=== PATIENT | female | born 1935 | race Caucasian/White ===

== ENCOUNTER 2017-01-24 23:15 | Observation (INO) | payer MEDICARE ==
[~2017-01-24] VITALS: Ht 162.6 cm; Wt 63.3 kg
[2017-01-24 23:19] VITALS: BP 120/65; PULSE 81; RESP 16; O2SAT 100
--- NOTE | 2017-01-24 23:28 | ED.REPORT ---
HPI-General Illness Date of Service Jan 24, 2017 ED Provider: Gilberto Ramos MD This is an 81 year old female with a history of Parkinson's disease, hyperlipidemia, hypothyroidism, hypertension, and ovarian cancer presenting to the emergency department via EMS complaining of anxiety that worsened one hour ago. She also reports, "shakes," malaise, and generalized weakness. Symptoms began after taking a shower tonight. Associated symptoms include diffuse myalgias and non-productive cough. Denies diaphoresis, fever, recent antibiotics, vomiting, abdominal pain, diarrhea, rashes, or dysuria. Denies recent falls or injuries. Denies history of anxiety. Adds that medication doses were adjusted in November. Nursing Notes Stated Complaint: SHAKY AND ANXIOUS Chief Complaint: General Complaint Nursing Notes Reviewed: Yes ([email or web address] not reconciled) Allergies: Coded Allergies: No Known Allergies (Unverified , 01/24/17) General Time Seen by MD: 23:20 Chief Complaint Other Hx Obtained From: Patient Arrived By: Ambulance Sudden in Onset?: Yes Onset Occurred: 1 - 4 hours ago Symptom Duration: Since onset Severity: Current: No pain currently Pertinent Negative: Pt denies other symptoms Recent Healthcare: No recent doctor visit, No recent hospitalization Similar Sx Previous: No Past Medical History Past Medical History Parkinson's Disease H/o ovarian cancer Hypothyroidism Reports: Hyperlipidemia, Hypertension Smoking History Never Smoker Ambulatory Status Independent Review of Systems Full Review of Systems Constitutional: Reports: Chills, Malaise, Weakness - generalized, Denies: Fever Respiratory: Reports: Non-productive cough, Denies: Shortness of breath Cardiovascular: Denies: Chest pain GI: Denies: Abdominal pain, Constipation, Diarrhea, Nausea, Vomiting Neurologic: Denies: Headache Psychiatric: Reports: Anxiety Complete sys rev & neg: except as marked. Physical Exam Vital Signs Vital Signs Date Time Temp Pulse Resp B/P Pulse Ox O2 Delivery O2 Flow Rate FiO2 01/24/17 23:19 36.6 81 16 120/65 100 Room Air Initial VS: Reviewed, Unavailable (none on chart, ordered) Head / Eyes: Atraumatic, Normocephalic, PERRL ENT: Mucous membranes moist, Conjunctiva normal, No scleral icterus Neck: Supple, Non-tender, Full range of motion Respiratory: Breath sounds normal, Clear to auscultation, No respiratory distress Cardiovascular: Regular rate & rhythm, Heart sounds normal, Intact distal pulses Abdomen / GI: Soft, Non-tender, No guarding, No rebound, No distention Extremities: Vascular intact, Neuro intact, No swelling, No tenderness Skin: Warm, Dry, No cyanosis Neurologic: Alert, Oriented, Nonfocal Psychiatric: Mood/affect normal, Behavior normal, Normal thought content General/Constitutional: Awake, Alert fatigued Interpretation & Diagnostics Lab Results Interpretation Result Diagram: 01/24/17 2352 01/24/17 2352 Test 01/24/17 23:52 01/25/17 00:59 White Blood Count 6.3th/mm3 (3.8-10.1) Red Blood Count 3.92mil/mm3 (3.90-5.20) Hemoglobin 11.8g/dL (12.0-15.6) Hematocrit 35.8% (35.0-46.0) Mean Corpuscular Volume 91.3fL (81-100) Mean Corpuscular Hemoglobin 30.1pg (27.0-35.0) Mean Corpuscular Hemoglobin Concent 33.0% (32.0-37.0) Red Cell Distribution Width 14.0% (12.3-15.4) Platelet Count 252bil/L (150-400) Neutrophils (%) (Auto) 66.9% (40-74) Lymphocytes (%) (Auto) 17.7% (14-46) Monocytes (%) (Auto) 12.7% (4-12) Eosinophils (%) (Auto) 1.6% (0-5) Basophils (%) (Auto) 0.6% (0-3) Sodium Level 138mEq/L (134-144) Potassium Level 3.6mEq/L (3.5-5.2) Chloride Level 97mEq/L (97-108) Carbon Dioxide Level 26mmol/L (18-29) Blood Urea Nitrogen 31mg/dL (8-27) Creatinine 1.06mg/dL (0.57-1.00) Estimat Glomerular Filtration Rate 71mL/min (>59) Glucose Level 129mg/dL (60-99) Lactic Acid Level 0.9mmol/L (0.4-2.0) Calcium Level 9.3mg/dL (8.5-10.1) Total Bilirubin 0.3mg/dL (0.0-1.2) Aspartate Amino Transf (AST/SGOT) 15U/L (0-50) Alanine Aminotransferase (ALT/SGPT) 5U/L (0-32) Alkaline Phosphatase 89U/L (25-165) Total Creatine Kinase 63U/L (21-215) Total Protein 6.7g/dL (6.4-8.4) Albumin 4.2g/dL (3.4-5.0) Urine Color Yellow (YELLOW) Urine Appearance Clear (CLEAR,HAZY) Urine pH 8.5 (5.0-8.0) Urine Specific [place] 1.015 (1.003-1.035) Urine Protein Negativemg/dL (NEG,TRACE) Urine Glucose (UA) Negativemg/dL (NEGATIVE) Urine Ketones Negativemg/dL (NEGATIVE) Urine Occult Blood Moderate (NEGATIVE) Urine Nitrite Negative (NEGATIVE) Urine Bilirubin Negative (NEGATIVE) Urine Urobilinogen Normalmg/dL (NORMAL) Urine Leukocyte Esterase Small (NEGATIVE) Urine RBC 0-2/hpf (0-2) Urine WBC 6-10/hpf (0-5) Urine Epithelial Cells Moderate/hpf (NONE-MOD) Urine Crystals None seen (NONE SEEN) Urine Bacteria Few/hpf (NONE-FEW) Urine Hyaline Casts None/lpf (NONE) Urine Granular Casts None seen (NONE SEEN) Urine Waxy Casts None seen (NONE SEEN) Urine Red Blood Cell Casts None seen (NONE SEEN) Urine White Blood Cell Casts None seen (NONE SEEN) Urine Mucus None seen (None Seen) Urine Trichomonas None seen (NONE SEEN) Urine Yeast None (NONE SEEN) Urine Culture Reflexed Indicated Re-Eval/Medical Decision Med Decision/Clinical Course This is an 81-year-old female with Parkinson's reports she has chronic nausea but presents today she developed severe shaking chills and profound generalized weakness. She Denies any falls, but states she just feels terrible and has no energy. He was wondering if it might be an anxiety, but has never had a previous history of anxiety attacks-and clearly describes shaking rigors. She is not certain if she has had a fever. She reports her baseline nausea slightly worse, does not had actual vomiting. She denies cough, shortness of breath. She denies diarrhea and reports moderate constipation. She denies dysuria, she denies rash or exanthems. She has not had a recent infection that she is aware of and has not been on recent antibiotics. On exam she is not currently febrile, but is generally weak, and fatigued. As no acute focal deficits. Lungs clear, heart tones are normal abdomen is soft and nontender. Blood work was obtained which is normal. Blood cultures are obtained which are pending. UA is marginally abnormal raises the specter of a possibly of a UTI, but is not entirely diagnostic. No infiltrates are clearly evident on chest x- ray. However the patient remains globally weak, patient does not feel safe at home, the family that are with her also do not feel safe at home and are not comfortable taking her home and returning if she gets worse-given the severity of her generalized weakness, comorbidities of significant Parkinson's, and his symptoms suggestive of a developing infection to a reasonable observation admission. Additionally she continues to have ongoing nausea-improved after multiple doses of ondansetron and a dose of promethazine which is likely cause some more mild sedation. The patient after blood cultures was drawn and is receiving a dose of ceftriaxone and cover the possibility of the new UTI. Source of Hx: Old records (none in EMR) Consultation : Referral / Consult Name: Janie Ventura DO Consulted With: Hospitalist Call Returned at: 02:28 Equipment Inspector: Accepts admit Differential Diagnosis: Positive: Urinary tract infection, Negative: Abdominal pain, Acute coronary syndrome, Allergies, Diabetes mellitus, G-tube repair/replacement, Neutropenia, Pneumonia Counseled Regarding: Diagnosis, Lab results, Need for follow-up, Need for admission Discharge & Departure Primary Impression: Rigors Additional Impressions: Generalized weakness Urinary tract infection Urinary tract infection type: site unspecified Hematuria presence: without hematuria Qualified Code: N39.0 - Urinary tract infection, site not specified Nausea Disposition: ADMITTED TO HOSPITAL Discharge Condition All VS Reviewed: Yes Condition: Stable Scribe Attestation Portions of this note were transcribed by Yeison Mccoy. I, Dr. Ramos personally performed the history, physical exam and medical decision-making; I reviewed and confirmed the accuracy of the information in the transcribed note. Signed by: telma Garsia. 01/24/2017, 03:00. Gilberto Ramos MD Jan 24, 2017 23:28 YEISON MCCOY Jan 24, 2017 23:30
[2017-01-25] MEDS ORDERED: Ondansetron 2 mg/mL 2 mL Inj ONE (00:06)
[2017-01-25 00:13] LABS: BASOPHILS % (AUTO) 0.6 % (0-3); EOSINOPHILS % (AUTO) 1.6 % (0-5); MONOCYTES % (AUTO) 12.7 % (4-12); Mean Corpuscular Hemoglobin 30.1 pg (27.0-35.0); Mean Corpuscular Volume 91.3 fL (81-100); NEUTROPHILS % (AUTO) 66.9 % (40-74); Platelet Count 252 bil/L (150-400)
[2017-01-25] MEDS ORDERED: 0.9% Sodium Chloride 1,000 ML IV ONE (00:25)
[2017-01-25] MEDS ORDERED: Ondansetron 2 mg/mL 2 mL Inj IVPUSH ONE (00:25)
[2017-01-25 01:41] LABS: APPEARANCE,URINE CLEAR (CLEAR,HAZY); COLOR,URINE YELLOW (YELLOW); PH,URINE 8.5 (5.0-8.0)
[2017-01-25 01:42] LABS: OCCULT BLOOD,URINE MODERATE (NEGATIVE); UROBILINOGEN,URINE NORMAL (NORMAL)
[2017-01-25] MEDS ORDERED: cefTRIAXone Inj 2,000 MG in Dextrose 5% Minibag Plus 50 ML IV ONE (02:05)
[2017-01-25] MEDS ORDERED: Promethazine Inj 12.5 MG in Dextrose 5%-Pha MIX 50 ML IV ONE (02:05)
[2017-01-25] MEDS ORDERED: Alum-Mag Hydrox-Simeth 30 mL Suspension PO PRN (02:30)
[2017-01-25] MEDS ORDERED: Polyethylene Glycol (PEG) 17 Gm Powder PO PRN (02:30)
[2017-01-25 03:17] VITALS: BP 111/56; PULSE 78; RESP 16; O2SAT 96
[2017-01-25 03:36] VITALS: BP 129/77; PULSE 79; RESP 18; O2SAT 97
--- NOTE | 2017-01-25 04:17 | PCM.HPMED ---
Subjective Date of Service Jan 25, 2017 Primary Provider: Admitting Physician: Janie Ventura DO Primary Care Physician: Kvng Rosales DO Attending Physician: Janie Ventura DO Admit Status: From the Emergency Department Chief Complaint: "shakes", generalized weakness History of Present Illness: 81yoF with past medical history of Parkinson's disease, hypothyroidism, HLD, HTN and ovarian cancer admitted with malaise, rigors, myalgias, and generalized weakness. Poor historian d/t fatigue and mild confusion. Onset of symptoms immediately prior to presentation to the ED as reported following a shower. She also endorses a new non-productive cough as per ED notation however denies during admission interview. No fevers, chills, nausea or vomiting, changes in bowel movements or urination. On presentation T36.6, HR 81, RR 16, BP 120/65, 100% on RA. Blood work notable for a creatinine 1.06 and mildly elevated glucose. Review of Systems: complete review of systems obtained. positive as per HPI otherwise negative Allergies Coded Allergies: No Known Allergies (Unverified , 01/24/17) Home Medications unknown at this time. recently changed. Son will be bringing medication list in the am. PMH Parkinson's Disease H/o ovarian cancer Hypothyroidism Hyperlipidemia Hypertension Family History father - gastric cancer mother - "heart" condition Social History Hx Alcohol Use: Yes (beer or wine at night) Hx Substance Use: No Smoking Status: Never Smoker Exam Vital Signs Vital Sign - Last Date Time Temp Pulse Resp B/P Pulse Ox O2 Delivery O2 Flow Rate FiO2 01/25/17 03:36 36.8 79 18 129/77 97 Room Air Intake and Output 01/24/17 01/24/17 01/25/17 Cumulative From/Thru 15:00 23:00 07:00 01/24/17 23:19 - 01/25/17 03:47 Intake Total 1000 ml 1000 ml Balance 1000 ml 1000 ml Intake IV Total 1000 ml 1000 ml Exam General: Alert, Oriented X3, Cooperative, no distress, confused, must be reminded frequently of what she was speaking about Eyes: PERRLA, Scleral Anicteric Mouth: Mouth Normal, Mucous Membranes Moist/[place], Neck: Supple, no Thyromegaly, trachea central. Chest & Lungs: CTA bilaterally, no wheeze, rhonchi or rales Cardiovascular: Normal S1, Normal S2, No Murmurs/Rubs/Gallops, Tachy /Rhythm, Murmur, (No JVD, trace peripheral edema) Pulses: Radial (present and equal), Dorsalis Pedi (present R) Abdomen: Soft, Non-tender, distended, Normoactive bowel tones. Musculoskeletal: Unremarkable. Normal range of motion, no swollen or erythematous joints Extremities: no pitting edema, no cyanosis, no clubbing. Skin: No rashes. Warm and dry, no erythematous areas Neurological: Grossly neurologically intact, has generalized weakness, slurred Speech but baseline, Sensation Intact Lymphatic: Lymph nodes Cervical and Axillary not palpable. Lab and Diagnostics Result Diagram: 01/24/17235101/24/172351 Assessment & Plan 81yoF with past medical history of Parkinson's disease, hypothyroidism, HLD, HTN and ovarian cancer admitted with malaise, rigors, myalgias, and generalized weakness. Generalized weakness, acute, POA -concerning for underlying infection given new onset of rigors, malaise, myalgia -new productive cough possible early URI -no urinary symptoms at this time, possible UTI given UA, ceftriaxone given in ED, will not continue but low threshold to start broad spectrum abx -consider viral URI panel if URI symptoms present -check TSH and free T4, B12 pending -PT / OT to eval for home safety Lower extremity edema, unknown chronicity -left greater than right -consider LE US to assess for DVT Parkinson's disease, chronic -continue home medications once med rec is complete Nausea, chronic -started following initiation of carbadopa levadopa -continue home medications once med rec is complete HTN, chronic -continue home medications once med rec is complete HLD, chronic -continue home medications once med rec is complete Restless leg syndrome, chronic -continue home medications once med rec is complete Pain Evaluation: Adequate Pain Control GI Prophylaxis: Not indicated VTE Prophylaxis: Sub-Q Heparin (Unfractionated) Resuscitation Status: CPR: Attempt Resuscitation Janie Ventura DO Jan 25, 2017 04:17
--- NOTE | 2017-01-25 04:30 | NUR ---
Admit Pt admitted to room 250-1 via stretcher. Patient ambulated to the bed. Patient med rec. not completed due to patient not knowing doses of medication. MD aware. Son Tashi went home and was to call with medications in hand. Has not happened yet. Patient preferred pharmacy is [facility] on [address].
[2017-01-25 07:42] LABS: BASOPHILS % (AUTO) 1.1 % (0-3); EOSINOPHILS % (AUTO) 1.1 % (0-5); MONOCYTES % (AUTO) 15.5 % (4-12); Mean Corpuscular Hemoglobin 30.3 pg (27.0-35.0); Mean Corpuscular Volume 91.9 fL (81-100); NEUTROPHILS % (AUTO) 59.8 % (40-74); Platelet Count 216 bil/L (150-400)
[2017-01-25] MEDS: Heparin 5,000 Unit/mL Inj SUBQ SCH ×2 (08:01→21:08)
--- NOTE | 2017-01-25 08:21 | DRSVH ---
PROCEDURE: X-RAY CHEST ONE VIEW, PORTABLE ([id number]) INDICATIONS: Fever, chills TECHNIQUE: One view of the chest was acquired. COMPARISON: None. FINDINGS: Surgical changes and devices: None. Lungs and pleura: No pleural effusions or pneumothorax. Lungs are clear. Mediastinum: Mediastinal contours appear normal. Heart size is normal. Bones and chest wall: No suspicious bony lesions. Overlying soft tissues appear unremarkable. IMPRESSION: No acute cardiopulmonary findings. Dictated by: Mary Vila M.D. on 01/25/2017 at 8:20 Approved by: Mary Vila M.D. on 01/25/2017 at 8:20
[2017-01-25 08:25] VITALS: BP 132/76; PULSE 69; RESP 14; O2SAT 98
[2017-01-25] MEDS ORDERED: cefTRIAXone Inj 1,000 MG in Dextrose 5% Minibag Plus 50 ML IV SCH (09:25)
[2017-01-25] MEDS ORDERED: DONE10TA42 PO (09:43)
[2017-01-25] MEDS ORDERED: PRAV10TA2 PO (09:43)
[2017-01-25] MEDS ORDERED: LEVO75TA4 PO (09:43)
[2017-01-25] MEDS ORDERED: CARB1TAB14 PO (09:43)
[2017-01-25] MEDS ORDERED: TRIA1TAB3 PO (09:43)
[2017-01-25] MEDS ORDERED: domperidone (09:54)
[2017-01-25] MEDS ORDERED: 0.9% Sodium Chloride 100 ML ONE (10:11)
--- NOTE | 2017-01-25 11:19 | NUR ---
Case Management: CLINE and Medicare Part D pamphlet delivered and explained to patient. Original CLINE placed in chart. Copies left at bedside. Grace Deras RN
--- NOTE | 2017-01-25 12:03 | DRSVH ---
PROCEDURE: CT BRAIN WITHOUT CONTRAST ([id number]) INDICATIONS: confusion TECHNIQUE: Noncontrast 4.5 mm thick angled axial sections acquired from the foramen magnum to the vertex, with c oronal reformats. COMPARISON: None. FINDINGS: Image quality: Excellent. CSF spaces: Basal cisterns are patent. No extra-axial fluid collections. The ventricles are symmet sang in size and shape. Brain: No intracranial bleeds or masses. There is cerebral volume loss for age, with resultant vent ricular and sulcal prominence. There are periventricular and deep white matter chronic small vessel ischemic changes. There is intracranial internal carotid artery atherosclerosis. Old lacunar ischem ia is noted within the anterior limb of the external capsules bilaterally as well as the left thalamu s. Skull and face: Calvarium and visualized facial bones appear intact, without suspicious lesions. Sinuses: Visualized sinuses and mastoids are clear. IMPRESSION: 1. No acute intracranial process. 2. Moderate atrophy and chronic microvascular ischemic changes. Dictated by: Jazz Grijalva M.D. on 01/25/2017 at 12:01 Approved by: Jazz Grijalva M.D. on 01/25/2017 at 12:02
[2017-01-25 14:00] VITALS: BP 110/71; PULSE 68; RESP 12; O2SAT 98
--- NOTE | 2017-01-25 14:57 | NUR ---
Social Work Note - Initial Assessment: D/A: See Initial Assessment, The Pt is an 81 y/o female that was admitted under observation status for weakness, rigors, UTI, nausea. The Pts readmission score is 3. The Pt's PCP is DO Kvng Rosales and her insurance is [employer] Medicare, no VA benefits. The Pts son reports that his mother has LTC insurance and will be looking in to her policy today. EMR reviewed, The Pt lives in a one story home in [place]. Family reports that the Pt has DPOA paperwork at home, copy requested. The Pt is mostly independent, son assists with shopping and house maintenance. The Pt diaz not drive, uses Uber or another taxi for transportation. The Pt has a cane, walker, and wheelchair at home she uses occasionally. No HH history reported. The Pt has had a short stay at a SNF in [place] in the past. Son reports that he is currently going through chemo and has concerns about his mothers need for additional care at home, LTC insurance explored. PT eval pending. SW will continue to follow. P: The Pt is not medically stable at this time, PT eval pending. SW will continue to follow. NICKO Johnson Fruit Harvest Machine Operator BRODIE Ross Addendum: 01/25/17 at 1458 by KAROLINE CHRISTIAN SS Amended: Links added.
[2017-01-25 18:15] VITALS: BP 118/70; PULSE 74; RESP 12; O2SAT 99
[2017-01-25] MEDS: Ondansetron 2 mg/mL 2 mL Inj IVPUSH PRN ×2 (21:08→21:54)
[2017-01-25 21:59] VITALS: BP 115/71; PULSE 68; RESP 17; O2SAT 97
[2017-01-26 02:00] VITALS: BP 123/75; PULSE 67; RESP 16; O2SAT 98
--- NOTE | 2017-01-26 05:53 | NUR ---
Shift Note Assumed pt care at 1900, pt noted alert/oriented x4, noted anxiety, forgetfulness, at 0200, noted pt wandering around unit [place], short episode of confusion, redirected back to her room, qhrly checks done, call light in reach, bed alarm on for safety.
[2017-01-26 06:29] VITALS: BP 137/77; PULSE 69; RESP 17; O2SAT 99
[2017-01-26] MEDS: Heparin 5,000 Unit/mL Inj SUBQ SCH (08:00)
--- NOTE | 2017-01-26 09:30 | NUR ---
Lab draw refusal Pt refused lab draw (did not want to be poked). Pt understands that it will be important for her to have follow up lab work done (by her PCP). Hospitalist notified of refusal.
--- NOTE | 2017-01-26 09:34 | PCM.DIMED ---
Discharge Instructions Date of Service Jan 26, 2017 Dates of Hospitalization Jan 25, 2017 at 02:54 Discharge Diagnosis Discharge Diagnosis # Generalized weakness and anxiety due to hyperthyroid state due to synthroid , acute, POA # Parkinson's disease, chronic # Nausea, chronic # HTN, chronic # HLD, chronic # Restless leg syndrome, chronic Diet Low fat, Low Sodium, Heart Healthy Activity Limited until seen by PCP Call your provider Fever or Chills, Shortness of breath, Bleeding, Chest pain, Vomitting, Excessive diarrhea, Weakness (unilateral) Patient Instructions You were hospitalized due to generalized weakness and anxiety due to hypothyroid state secondary to Synthroid medication. your blood Thyroid level is very high.I have discontinued your Synthroid. Please follow-up with PCP in 1-2 weeks. Thyroid function needs to be rechecked in 1-2 weeks and your PCP may restart your thyroid medications at lower dose if needed. Your current TSH is 0.018 and free T4 3.33. Follow-up plan Please follow-up with PCP in 1 week. Follow-up Provider: Kvng Rosales DO Follow-up with PCP in: 1 week Jose Andujar MD Jan 26, 2017 09:34
[2017-01-26 10:30] VITALS: BP 112/73; PULSE 62
--- NOTE | 2017-01-26 10:30 | NUR ---
Discharge Pt discharged from unit. Pt's son came for the her and they have an uber milk truck driver that will take them home. Taken off floor in a wheelchair. Pt and son provided with information on diagnosis, follow up, and signs to watch for. Pt instructed to not take Synthroid until she sees her PCP. PCP appointment scheduled for the pt on 01/31. Pt's son confirms that she has a cane at home. Belongings taken with pt.
--- NOTE | 2017-01-26 10:52 | PCM.DC.MED ---
Discharge Summary Date of Service Jan 26, 2017 Dates of Hospitalization Date of Hospital Admission Jan 25, 2017 at 02:54 Date of Discharge: Jan 26, 2017 Providers: Admitting Physician: Janie Ventura DO Primary Care Physician: Kvng Rosales DO Attending Physician: Janie Ventura DO Diagnosis at Time of Discharge Diagnosis at Time of Discharge # Generalized weakness and anxiety due to hyperthyroid state due to synthroid , acute, POA # Parkinson's disease, chronic # Nausea, chronic # HTN, chronic # HLD, chronic # Restless leg syndrome, chronic Consultations none Procedures XRay, CTs & MRIs PROCEDURE: CT BRAIN WITHOUT CONTRAST ([id number]) INDICATIONS: confusion IMPRESSION: 1. No acute intracranial process. 2. Moderate atrophy and chronic microvascular ischemic changes. Dictated by: Jazz Grijalva M.D. on 01/25/2017 at 12:01 PROCEDURE: X-RAY CHEST ONE VIEW, PORTABLE ([id number]) INDICATIONS: Fever, chills IMPRESSION: No acute cardiopulmonary findings. Dictated by: Mary Vila M.D. on 01/25/2017 at 8:20 Brief History per HPI by Dr Ventura on 01/25/17 81yoF with past medical history of Parkinson's disease, hypothyroidism, HLD, HTN and ovarian cancer admitted with malaise, rigors, myalgias, and generalized weakness. Poor historian d/t fatigue and mild confusion. Onset of symptoms immediately prior to presentation to the ED as reported following a shower. She also endorses a new non-productive cough as per ED notation however denies during admission interview. No fevers, chills, nausea or vomiting, changes in bowel movements or urination. On presentation T36.6, HR 81, RR 16, BP 120/65, 100% on RA. Blood work notable for a creatinine 1.06 and mildly elevated glucose. Hospital Course 81yoF with past medical history of Parkinson's disease, hypothyroidism, HLD, HTN and ovarian cancer admitted with malaise, rigors, myalgias, and generalized weakness. # Generalized weakness and anxiety, acute episode, acute, POA, resolved now -Due to hyperthyroidism states due to Synthroid -TSH 0.08 free T4 elevated at 3.33 . Discontinued Synthroid. Advised to follow -up with PCP in 1-2 weeks. PCP needs to check thyroid function test in 2 weeks and may consider restarting Synthroid at lower dose like 25 if needed. -no urinary symptoms , initially treated for UTI given UA, urine culture negative on the glottic discontinued. #Parkinson's disease, chronic -continue home medications #Nausea, chronic -started following initiation of carbadopa levadopa -continue home medications #HTN, chronic -continue home medications #HLD, chronic -continue home medications Restless leg syndrome, chronic -continue home medications Condition on discharge stable Discharge home with home physical therapy Exam Vital Signs (Last) Date Time Temp Pulse Resp B/P Pulse Ox O2 Delivery O2 Flow Rate FiO2 01/26/17 10:30 62 112/73 01/26/17 06:29 36.5 17 99 Room Air Exam General: Alert, Oriented X3, Cooperative, no distress, Eyes: PERRLA, Scleral Anicteric Mouth: Mouth Normal, Mucous Membranes Moist/[place], Neck: Supple, no Thyromegaly, trachea central. Chest & Lungs: CTA bilaterally, no wheeze, rhonchi or rales Cardiovascular: Normal S1, Normal S2, No Murmurs/Rubs/Gallops, Tachy /Rhythm, Murmur, (No JVD, trace peripheral edema) Pulses: Radial (present and equal), Dorsalis Pedi (present R) Abdomen: Soft, Non-tender, distended, Normoactive bowel tones. Musculoskeletal: Unremarkable. Normal range of motion, no swollen or erythematous joints Extremities: no pitting edema, no cyanosis, no clubbing. Skin: No rashes. Warm and dry, no erythematous areas Neurological: Grossly neurologically intact, has generalized weakness, slurred Speech but baseline, Sensation Intact Lymphatic: Lymph nodes Cervical and Axillary not palpable. Test 01/24/17 23:52 01/25/17 00:59 01/25/17 07:05 Lactic Acid Level 0.9mmol/L (0.4-2.0) Total Creatine Kinase 63U/L (21-215) Vitamin B12 Level 647pg/mL (211-946) Thyroid Stimulating Hormone (TSH) 0.018uIU/mL (0.450-4.500) Free Thyroxine 3.33ng/dL (0.82-1.77) Urine Color Yellow (YELLOW) Urine Appearance Clear (CLEAR,HAZY) Urine pH 8.5 (5.0-8.0) Urine Specific [place] 1.015 (1.003-1.035) Urine Protein Negativemg/dL (NEG,TRACE) Urine Glucose (UA) Negativemg/dL (NEGATIVE) Urine Ketones Negativemg/dL (NEGATIVE) Urine Occult Blood Moderate (NEGATIVE) Urine Nitrite Negative (NEGATIVE) Urine Bilirubin Negative (NEGATIVE) Urine Urobilinogen Normalmg/dL (NORMAL) Urine Leukocyte Esterase Small (NEGATIVE) Urine RBC 0-2/hpf (0-2) Urine WBC 6-10/hpf (0-5) Urine Epithelial Cells Moderate/hpf (NONE-MOD) Urine Crystals None seen (NONE SEEN) Urine Bacteria Few/hpf (NONE-FEW) Urine Hyaline Casts None/lpf (NONE) Urine Granular Casts None seen (NONE SEEN) Urine Waxy Casts None seen (NONE SEEN) Urine Red Blood Cell Casts None seen (NONE SEEN) Urine White Blood Cell Casts None seen (NONE SEEN) Urine Mucus None seen (None Seen) Urine Trichomonas None seen (NONE SEEN) Urine Yeast None (NONE SEEN) Urine Culture Reflexed Indicated White Blood Count 4.5th/mm3 (3.8-10.1) Red Blood Count 3.60mil/mm3 (3.90-5.20) Hemoglobin 10.9g/dL (12.0-15.6) Hematocrit 33.1% (35.0-46.0) Mean Corpuscular Volume 91.9fL (81-100) Mean Corpuscular Hemoglobin 30.3pg (27.0-35.0) Mean Corpuscular Hemoglobin Concent 32.9% (32.0-37.0) Red Cell Distribution Width 14.0% (12.3-15.4) Platelet Count 216bil/L (150-400) Neutrophils (%) (Auto) 59.8% (40-74) Lymphocytes (%) (Auto) 22.1% (14-46) Monocytes (%) (Auto) 15.5% (4-12) Eosinophils (%) (Auto) 1.1% (0-5) Basophils (%) (Auto) 1.1% (0-3) Sodium Level 142mEq/L (134-144) Potassium Level 4.0mEq/L (3.5-5.2) Chloride Level 103mEq/L (97-108) Carbon Dioxide Level 25mmol/L (18-29) Blood Urea Nitrogen 26mg/dL (8-27) Creatinine 1.06mg/dL (0.57-1.00) Estimat Glomerular Filtration Rate 71mL/min (>59) Glucose Level 102mg/dL (60-99) Calcium Level 9.1mg/dL (8.5-10.1) Total Bilirubin 0.3mg/dL (0.0-1.2) Aspartate Amino Transf (AST/SGOT) 11U/L (0-50) Alanine Aminotransferase (ALT/SGPT) 5U/L (0-32) Alkaline Phosphatase 83U/L (25-165) Total Protein 5.5g/dL (6.4-8.4) Albumin 3.8g/dL (3.4-5.0) Microbiology Results Blood culture negative times 2 Ordered: URINE CULT Procedure Result Verified Site Microbiology CARLOS CULT URINE Final 01/26/17-07 Organism 1 MIXED UROGENITAL GARETH U COLONY COUNT/QUANTITY Less than 10,000 CFU/ml Discharge Medications Discharge Medications Carbidopa/Levodopa 25-100 mg (Carbidopa/Levodopa 25-100 mg) 1 Each Tablet 1.5 TABLET PO QID (Reported) Donepezil (Donepezil) 10 Mg Tablet 10 MG PO HS (Reported) Pravastatin (Pravastatin) 10 Mg Tablet 10 MG PO HS (Reported) Triamterene/HCTZ 37.5-25 mg (Triamterene/HCTZ 37.5-25 mg) 1 Each Tablet 1 TABLET PO DAILY (Reported) Miscellaneous Medications ([domperidone]) (Reported) Followup Plan Disposition: home with Follow-up plan Please follow-up with PCP in 1 week. Discharge Diet: Low fat, Low Sodium, Heart Healthy Discharge Activity: Limited until seen by PCP Patient Instructions You were hospitalized due to generalized weakness and anxiety due to hypothyroid state secondary to Synthroid medication. your blood Thyroid level is very high.I have discontinued your Synthroid. Please follow-up with PCP in 1-2 weeks. Thyroid function needs to be rechecked in 1-2 weeks and your PCP may restart your thyroid medications at lower dose if needed. Your current TSH is 0.018 and free T4 3.33. Follow-up Provider: Kvng Rosales DO Follow-up with PCP in: 1 week copies to: Kvng Rosales Melaku MD Jan 26, 2017 10:52
--- NOTE | 2017-01-26 12:14 | NUR ---
Social Work: Discharge Data: Pt is on day 1 of hospitalization. EMR reviewed, pt was discharged this morning with Home Health orders. DIRECTOR OF EDUCATION called pt's son who stated no preference of HH company, rotating calendar referred to, pt referred to [facility]. DIRECTOR OF EDUCATION gave access and spoke with Gianni Jc who will cone picker F2F from hospital. No further d/c planning needs. Assessment: Pt from home with son. Plan: Pt discharged home today via POV with son with [facility] RN/PT. No further d/c planning needs. NICKO Tyler
== END 2017-01-26 10:30 | disposition home health service (06) ==
LOC: SED 23:15 → MOC 01-25 02:54
PROVIDERS: ADMIT Internal Medicine; ATTEND Internal Medicine
DX: R53.1 Weakness (principal); F41.9 Anxiety disorder, unspecified; E05.90 Thyrotoxicosis, unspecified without thyrotoxic crisis or storm; G20 Parkinson's disease; R11.0 Nausea; I10 Essential (primary) hypertension; E78.5 Hyperlipidemia, unspecified; G25.81 Restless legs syndrome; Z85.43 Personal history of malignant neoplasm of ovary; R60.0 Localized edema; N39.0 Urinary tract infection, site not specified
CPT/HCPCS: 36415; 70450; 71010; 80053; 81000; 82550; 82607; 83605; 84439; 84443; 85025; 87040; 87086; 87088; 96361; 96365; 96366; 96375; 96376; 97162; 99285; G0378; J0696; J1644; J2405; J2550; J7030